=== PATIENT | female | born 1955 | race Caucasian/White ===

== ENCOUNTER → 2018-07-25 | Outpatient (CLI) | payer OTHER ==
[~2018-07-25] MED LIST: ATR10 PO; LEV100 PO; MULT-1 PO; OLME1TAB51 PO; VALS1TAB4 PO
--- NOTE | 2018-07-26 12:33 | RADIOLOGY IMAGING REPORT ---
[place] [facility] [place] NAME: CONCETTA BRAVO : [id number] MR: [id number] V: [id number] EXAM DATE: ORDERING PHYSICIAN: BEATRICE SHEIKH TECHNOLOGIST: Jennifer Iglesias PROCEDURE:BILATERAL DIGITAL SCREENING MAMMOGRAM WITH CAD ASSISTED INTERPRETATION & 3D TOMOSYNTHESIS COMPARISON:None. INDICATIONS:screening/Family history breast carcinoma in mother at age 68 & in paternal cousin. VIEWS OBTAINED: Bilateral 2D full field CC & MLO & corresponding 3D tomography TISSUE DENSITY: Heterogeneously dense which may obscure small masses. FINDINGS: There is no mammographic finding concerning for malignancy, & no significant change compared to prior mammograms. DIAGNOSTIC CATEGORY 1--NEGATIVE. RECOMMENDATIONS: ROUTINE ANNUAL MAMMOGRAM AND CLINICAL EVALUATION. IMPRESSION: BIRADS 1: Negative. Dictated by: Violet Segura M.D. on 07/26/2018 at 8:44 Transcribed by: WILLIAM on 07/26/2018 at 10:52 Approved by: Violet Segura M.D. on 07/26/2018 at 12:33 [facility]
== END ==
LOC: MAMO 00:46
PROVIDERS: ATTEND Physician Assistant
DX: Z12.31 Encounter for screening mammogram for malignant neoplasm of breast (principal)
CPT/HCPCS: 77063; 77067